=== PATIENT | female | born 1935 | race African-American/Black ===

== ENCOUNTER 2016-12-22 13:13 | Inpatient (IN) | payer OTHER, MEDICARE ==
[2016-12-22] VITALS (9 sets, daily range): BP systolic 157–202; BP diastolic 78–112; PULSE 79–116; RESP 15–20; TEMP 98.3–98.8; O2SAT 96–100
[~2016-12-22] VITALS: Ht 157.5 cm; Wt 65.0 kg
[~2016-12-22 13:13] MED LIST: FOLI5CAP PO; LISI2.5T3 PO; ROBA500T PO; VERA40TA PO
[2016-12-22] MEDS ORDERED: SODIUM CHLORIDE 0.9% FLUSH 10 ML FLUSH IVF PRN (14:00)
[2016-12-22 14:21] LABS: AUTOMATED NEUTROPHIL # 3.2 TH/MM3 (1.8-7.7); EOSINOPHIL # 0.1 TH/MM3 (0-0.4); EOSINOPHIL % 1.7 % (0.0-4.0); HEMATOCRIT 38.5 % (35.0-46.0); HEMO FLAGS DIFF FINAL; LYMPH % 23.6 % (9.0-44.0); LYMPHOCYTE # 1.2 TH/MM3 (1.0-4.8); MEAN CELL VOLUME 82.4 FL (80.0-100.0); MEAN CORPUSCULAR HEMOGLOBIN 27.3 PG (27.0-34.0); MEAN CORPUSCULAR HGB CONC 33.1 % (32.0-36.0); MONO % 10.2 % (0.0-8.0); NEUT % 63.5 % (16.0-70.0); PLATELET COUNT 192 TH/MM3 (150-450); RED BLOOD COUNT 4.68 MIL/MM3 (4.00-5.30); RED CELL DISTRIBUTION WIDTH 14.9 % (11.6-17.2)
[2016-12-22] MEDS ORDERED: hydrALAZINE HCL 20 MG/ML VIAL IV PUSH ONE (14:30)
[2016-12-22 14:32] LABS: PROTHROMBIN TIME - PATIENT 10.5 SEC (9.8-11.6)
[2016-12-22 14:40] LABS: ANION GAP 8 MEQ/L (5-15); BLOOD UREA NITROGEN 9 MG/DL (7-18); CHLORIDE 104 MEQ/L (98-107); GLOMERULAR FILTRATION RATE 84 ML/MIN (>89); MAGNESIUM 2.1 MG/DL (1.5-2.5); POTASSIUM 4.4 MEQ/L (3.5-5.1); SODIUM (NA) 139 MEQ/L (136-145)
[2016-12-22 14:45] LABS: CREATINE KINASE 166 U/L (26-192)
[2016-12-22 14:57] LABS: CKMB 1.8 NG/ML (0.5-3.6)
[2016-12-22 15:17] LABS: APTT (PATIENT) 21.3 SEC (24.3-30.1)
--- NOTE | 2016-12-22 15:20 | PD ---
HPI Chief Complaint: Cardiac Complaint Time Seen by Provider: 13:44 Travel History International Travel<30 days: No Contact w/Intl Traveler<30days: No Traveled to known affect area: No History of Present Illness HPI This is a 81-year-old female with history of hypertension, presents today with complaints of palpitations. The patient reports that she's been feeling palpitations over the last several days. She denies any chest pressure or chest pain. Patient does have a history of high blood pressure and states that she's been taking her medications as prescribed. There is no shortness of breath. There is no diaphoresis. There are no other complaints time my examination. The patient does live alone and states she is going through some stress and having some anxiety secondary to an upcoming family reunion. Patient also complaining of dizziness. No headache. No stiff neck. PFSH Past Medical History Anemia: Yes Arthritis: Yes (RA) Blood Disorders: No Cancer: No COPD: Yes Diminished Hearing: No Endocrine: No Genitourinary: Yes (SM URETHRA- NEEDS DILATING) Headaches: Yes Hypertension: Yes Immune Disorder: Yes (RA) Reproductive: No Past Surgical History Joint Replacement: Yes (LEFT TOTAL KNEE 03/04/06 [facility]) Social History Alcohol Use: No Tobacco Use: No Substance Use: No Allergies-Medications (Allergen,Severity, Reaction): Coded Allergies: Bactrim (Verified Allergy, Intermediate, Lip swelling, 05/08/16) Reported Meds & Prescriptions Reported Meds & Active Scripts Active Robaxin (Methocarbamol) 500 Mg Tab 500 Mg PO HS Reported [unknown] Verapamil (Verapamil HCl) 40 Mg Tab Unknown Dose PO DIRECTED Folic Acid 5 Mg Cap Unknown Dose PO DAILY Lisinopril 2.5 Mg Tab Unknown Dose PO DAILY Review of Systems Except as stated in HPI: all other systems reviewed are Neg General / Constitutional: No: Fever, Chills HENT: Positive: Lightheadedness, No: Headaches, Neck Stiffness, Neck Pain Cardiovascular: Positive: Palpitations, No: Chest Pain or Discomfort, Irregular Rhythm Respiratory: No: Cough, Shortness of Breath Gastrointestinal: No: Nausea, Vomiting, Abdominal Pain Genitourinary: No: Frequency, Dysuria Musculoskeletal: No: Weakness, Pain Neurologic: Positive: Dizziness, No: Weakness, Headache Physical Exam Narrative GENERAL: Well-developed well-nourished female in no acute rest her distress. SKIN: Focused skin assessment warm/dry. HEAD: Atraumatic. Normocephalic. EYES: No scleral icterus. No injection or drainage. ENT: No nasal bleeding or discharge. Mucous membranes pink and moist. NECK: Trachea midline. No JVD. Supple. CARDIOVASCULAR: Regular rate and rhythm. No murmur appreciated. RESPIRATORY: No accessory muscle use. Clear to auscultation. Breath sounds equal bilaterally. GASTROINTESTINAL: Abdomen soft, non-tender, nondistended. MUSCULOSKELETAL: No obvious deformities. No clubbing. No cyanosis. No edema. NEUROLOGICAL: Awake and alert. No obvious cranial nerve deficits. Motor grossly within normal limits. Normal speech. Data Data Last Documented VS Vital Signs Date Time Temp Pulse Resp B/P Pulse Ox O2 Delivery O2 Flow Rate FiO2 12/22/16 16:01 99 18 165/87 99 Room Air 12/22/16 13:16 98.3 Orders Electrocardiogram (12/22/16 13:51) Basic Metabolic Panel (Bmp) (12/22/16 13:51) B-Type Natriuretic Peptide (12/22/16 13:51) Ckmb (Isoenzyme) Profile (12/22/16 13:51) Complete Blood Count With Diff (12/22/16 13:51) Magnesium (Mg) (12/22/16 13:51) Prothrombin Time / Inr (Pt) (12/22/16 13:51) Act Partial Throm Time (Ptt) (12/22/16 13:51) Troponin I (12/22/16 13:51) Chest, Single Ap (12/22/16 13:51) Ecg Monitoring (12/22/16 13:51) Bilateral Bp Monitoring (12/22/16 13:51) Iv Access Insert/Monitor (12/22/16 13:51) Oximetry (12/22/16 13:51) Oxygen Administration (12/22/16 13:51) Sodium Chloride 0.9% Flush (Ns Flush) (12/22/16 14:00) Hydralazine Inj (Apresoline Inj) (12/22/16 14:30) CKMB (12/22/16 14:11) CKMB% (12/22/16 14:11) Enalaprilat Inj (Vasotec Inj) (12/22/16 16:15) Labs Laboratory Tests Test 12/22/16 14:11 White Blood Count 5.0 TH/MM3 Red Blood Count 4.68 MIL/MM3 Hemoglobin 12.8 GM/DL Hematocrit 38.5 % Mean Corpuscular Volume 82.4 FL Mean Corpuscular Hemoglobin 27.3 PG Mean Corpuscular Hemoglobin 33.1 % Concent Red Cell Distribution Width 14.9 % Platelet Count 192 TH/MM3 Mean Platelet Volume 8.9 FL Neutrophils (%) (Auto) 63.5 % Lymphocytes (%) (Auto) 23.6 % Monocytes (%) (Auto) 10.2 % Eosinophils (%) (Auto) 1.7 % Basophils (%) (Auto) 1.0 % Neutrophils # (Auto) 3.2 TH/MM3 Lymphocytes # (Auto) 1.2 TH/MM3 Monocytes # (Auto) 0.5 TH/MM3 Eosinophils # (Auto) 0.1 TH/MM3 Basophils # (Auto) 0.0 TH/MM3 CBC Comment DIFF FINAL Differential Comment Prothrombin Time 10.5 SEC Prothromb Time International 1.0 RATIO Ratio Activated Partial 21.3 SEC Thromboplast Time Sodium Level 139 MEQ/L Potassium Level 4.4 MEQ/L Chloride Level 104 MEQ/L Carbon Dioxide Level 27.0 MEQ/L Anion Gap 8 MEQ/L Blood Urea Nitrogen 9 MG/DL Creatinine 0.79 MG/DL Estimat Glomerular Filtration 84 ML/MIN Rate Random Glucose 79 MG/DL Calcium Level 8.8 MG/DL Magnesium Level 2.1 MG/DL Total Creatine Kinase 166 U/L Creatine Kinase MB 1.8 NG/ML Troponin I LESS THAN 0.02 NG/ML MDM Medical Decision Making Medical Screen Exam Complete: Yes Emergency Medical Condition: Yes Differential Diagnosis Hypertensive urgency versus ACS versus paroxysmal A. fib. Narrative Course 81-year-old female presents with complaints of palpitations and dizziness. The patient noted to have elevated blood pressure. Patient states she's been taking her blood pressure medicines as prescribed. EKG shows no evidence of acute ST elevation or depression. Cardiac enzymes are within normal limits. The patient is received 2 doses of IVD antihypertensives. Given this, I feel the patient will benefit from an observation admission to get her blood pressure under control. There is a call out to the [facility] for observation. Diagnosis Primary Impression: Hypertensive urgency Additional Impression: Palpitations Gallo Church MD Dec 22, 2016 15:20
--- NOTE | 2016-12-22 15:35 | RADRPT ---
EXAM DATE/TIME: 12/22/2016 14:32 [facility] COMPARISON: CHEST SINGLE AP, April 09, 2015, 14:21. INDICATIONS : Rapid heart rate. MEDICAL HISTORY : Chronic obstructive pulmonary disease. SURGICAL HISTORY : None. ENCOUNTER: Initial ACUITY: 1 day PAIN SCORE: 0/10 LOCATION: Bilateral chest FINDINGS: Linear platelike opacity in the left lung base similar to prior exam consistent with atelectasis/scar ring. Minimal airspace disease in the right lung base improved from prior exam, likely atelectasis. N o significant pneumothorax or pleural effusion. Cardiomediastinal contours are stable. Redemonstratio n of advanced degenerative changes in the right shoulder. Remainder of exam is unchanged. CONCLUSION: 1. Bilateral lower lobe atelectasis/scarring. 2. No acute abnormality or significant interval change. Thom Rolon MD on December 22, 2016 at 15:31 Board Certified Radiologist. This report was verified electronically.
[2016-12-22] MEDS ORDERED: ENALAPRILAT 1.25 MG/ML VIAL IV PUSH ONE (16:15)
[2016-12-22] MEDS ORDERED: NALOXONE HCL 0.4 MG/ML AMP IV PRN (17:00)
[2016-12-22] MEDS ORDERED: ENALAPRILAT 1.25 MG/ML VIAL IV PUSH PRN (17:00)
[2016-12-22] MEDS ORDERED: LACTULOSE SYRUP 20 GM/30 ML CUP PO PRN (17:00)
[2016-12-22] MEDS ORDERED: MAGNESIUM HYDROXIDE SUSP 30 ML CUP PO PRN (17:00)
[2016-12-22] MEDS ORDERED: BISACODYL 10 MG SUPP RECTAL PRN (17:00)
[2016-12-22] MEDS ORDERED: SODIUM CHLORIDE 0.9% FLUSH 10 ML FLUSH IV FLUSH PRN (17:00)
[2016-12-22] MEDS ORDERED: ONDANSETRON HCL 4 MG/2 ML VIAL IVP PRN (17:00)
[2016-12-22] MEDS ORDERED: SENNOSIDES 8.6 MG TAB PO PRN (17:00)
[2016-12-22] MEDS ORDERED: LISI-519 PO (17:17)
[2016-12-22] MEDS ORDERED: METH2.5T PO (17:17)
[2016-12-22] MEDS ORDERED: MELO7.5T4 PO (17:17)
[2016-12-22] MEDS ORDERED: METO25TA3 PO (17:17)
[2016-12-22] MEDS ORDERED: ESCI20TA PO (17:17)
--- NOTE | 2016-12-22 17:49 | HHI.HP ---
HPI Service [facility] Primary Care Physician Non-Staff Admission Diagnosis uncontrolled hypertension, palpatations. Diagnoses: (1) Hypertensive urgency Diagnosis: Principal Travel History International Travel<30 Days: No Contact w/Intl Traveler <30 Da: No Traveled to Known Affected Are: No History of Present Illness Patient is a pleasant 81-year-old female with past medical history of RA, hypertension, questionable COPD presented to the emergency room because of feeling dizzy. She states that she went out to eat yesterday and felt dizzy and this continued throughout the night. She did not fall or loss of balance or felt lightheaded. She tells me that she has no difficulty walking however the dizziness bother her to the point that she decided to come to the emergency room to be evaluated. She did have an appointment last with her primary care doctor because at the time she had fallen and hit her side of her chest. She was concerned because she had pain whenever she sneezed. Her PCP evaluated her and was not concerned about her heart. He denies any chest pain, shortness of breath, nausea or vomiting. Currently she denies any lightheadedness and is not complaining of any dizziness. She tells me that she takes verapamil, lisinopril and metoprolol however she ran out of her metoprolol the other day and has not had a chance to refill her medicine. She goes to [facility]. She tells me she has no family here in town however her nieces to call her and check on her. She has some mild burning in her eyes however denies any blurry vision, headache although she states that she had a mild headache earlier today which has resolved. She doesn't use a cane or walker Review of Systems Except as stated in HPI: all other systems reviewed are Neg Past Family Social History Past Medical History Hypertension, rheumatoid arthritis, questionable COPD Past Surgical History Left total knee arthroplasty Reported Medications Last Impressions Chest X-Ray 12/22/16 1351 Signed Impressions: Service Date/Time: Thursday, December 22, 2016 14:32 - CONCLUSION: 1. Bilateral lower lobe atelectasis/scarring. 2. No acute abnormality or significant interval change. Thom Rolon MD Allergies: Coded Allergies: Bactrim (Verified Allergy, Intermediate, Lip swelling, 05/08/16) Family History Mother had Alzheimer's and father had high blood pressure Social History Denies any smoking history, drinks wine socially, denies illegal drug use Physical Exam Vital Signs Vital Signs Date Time Temp Pulse Resp B/P Pulse Ox O2 Delivery O2 Flow Rate FiO2 12/22/16 16:01 99 18 165/87 99 Room Air 12/22/16 14:34 85 18 179/88 98 Room Air 12/22/16 14:14 75 18 97 Room Air 12/22/16 14:12 18 96 Room Air 12/22/16 14:12 96 Room Air 12/22/16 14:12 79 185/108 202/112 12/22/16 13:16 98.3 84 15 172/101 98 Physical Exam GENERAL: This is a well-nourished, well-developed patient, in no apparent distress. SKIN: No rashes, ecchymoses or lesions. Cool and dry. HEAD: Atraumatic. Normocephalic. No temporal or scalp tenderness. EYES: Pupils equal round and reactive. Extraocular motions intact. Mild injection bilaterally. No drainage ENT: Nose without drainage. Throat without erythema, tonsillar hypertrophy or exudate. Uvula midline. Airway patent. NECK: Trachea midline. No JVD or lymphadenopathy. Supple, nontender, no meningeal signs. CARDIOVASCULAR: Regular rate and rhythm without murmurs. RESPIRATORY: Clear to auscultation. Breath sounds equal bilaterally. No wheezes. GASTROINTESTINAL: Abdomen soft, non-tender, nondistended. No palpable masses. No guarding. MUSCULOSKELETAL: Extremities without edema. No calf tenderness. Negative Homans sign bilaterally. NEUROLOGICAL: Awake and alert. Cranial nerves II through XII intact. Motor and sensory grossly within normal limits. Normal speech. Laboratory Laboratory Tests Test 12/22/16 14:11 White Blood Count 5.0 Red Blood Count 4.68 Hemoglobin 12.8 Hematocrit 38.5 Mean Corpuscular Volume 82.4 Mean Corpuscular Hemoglobin 27.3 Mean Corpuscular Hemoglobin 33.1 Concent Red Cell Distribution Width 14.9 Platelet Count 192 Mean Platelet Volume 8.9 Neutrophils (%) (Auto) 63.5 Lymphocytes (%) (Auto) 23.6 Monocytes (%) (Auto) 10.2 Eosinophils (%) (Auto) 1.7 Basophils (%) (Auto) 1.0 Neutrophils # (Auto) 3.2 Lymphocytes # (Auto) 1.2 Monocytes # (Auto) 0.5 Eosinophils # (Auto) 0.1 Basophils # (Auto) 0.0 CBC Comment DIFF FINAL Differential Comment Prothrombin Time 10.5 Prothromb Time International 1.0 Ratio Activated Partial 21.3 Thromboplast Time Sodium Level 139 Potassium Level 4.4 Chloride Level 104 Carbon Dioxide Level 27.0 Anion Gap 8 Blood Urea Nitrogen 9 Creatinine 0.79 Estimat Glomerular Filtration 84 Rate Random Glucose 79 Calcium Level 8.8 Magnesium Level 2.1 Total Creatine Kinase 166 Creatine Kinase MB 1.8 Troponin I LESS THAN 0.02 Result Diagram: 12/22/16 1411 12/22/16 1411 Imaging Last Impressions Chest X-Ray 12/22/16 1351 Signed Impressions: Service Date/Time: Thursday, December 22, 2016 14:32 - CONCLUSION: 1. Bilateral lower lobe atelectasis/scarring. 2. No acute abnormality or significant interval change. Thom Rolon MD Assessment and Plan Assessment and Plan Hypertensive urgency: Patient received a dose of hydralazine and Vasotec in the emergency room with minimal improvement. Initial blood pressure was 180-200 systolic. Patient admits to running out of her metoprolol and not having a chance to refill it. I had a long conversation w patient about her sodium intake and explained to her that she should follow a low sodium diet. I will increase her verapamil 40 mg BID, lisinopril will increase it to 10 mg daily, continue metoprolol 25 mg daily. Hydralazine when necessary and Vasotec when necessary. Titrate meds as needed. Patient has no neurological deficits come, creatinine is 0.79 and initial troponin is within normal limits. Rheumatoid arthritis: Resume her methotrexate ?COPD: Stable DVT prophylaxis: Lovenox Code Status full Discussed Condition With ER physician and patient Sandrita Mckenzie MD Dec 22, 2016 17:49
[2016-12-22] MEDS ORDERED: ENOXAPARIN SODIUM 40 MG/0.4 ML SYRINGE SQ SCH (18:00)
[2016-12-22] MEDS: hydrALAZINE HCL 10 MG TAB PO PRN (18:34)
[2016-12-22] MEDS ORDERED: LISINOPRIL 10 MG TAB PO SCH (21:00)
[2016-12-22] MEDS: DOCUSATE SODIUM 50 MG/SENNA 8.6 MG TAB PO SCH (21:00)
[2016-12-22] MEDS ORDERED: VERAPAMIL HCL 40 MG TAB PO SCH (21:00)
[2016-12-22] MEDS: SODIUM CHLORIDE 0.9% FLUSH 10 ML FLUSH IV FLUSH SCH (21:42)
[2016-12-23] VITALS (18 sets, daily range): BP systolic 91–210; BP diastolic 57–112; PULSE 67–93; RESP 16–20; TEMP 98.5–98.7; O2SAT 95–99
[2016-12-23] MEDS: hydrALAZINE HCL 10 MG TAB PO PRN (01:14)
[2016-12-23] MEDS ORDERED: cloNIDine HCL 0.1 MG TAB PO ONE ×2 (02:30→03:45)
[2016-12-23] MEDS ORDERED: hydrALAZINE HCL 50 MG TAB PO ONE (04:45)
[2016-12-23 07:37] LABS: BICARBONATE 26.9 MEQ/L (21.0-32.0); POTASSIUM 3.6 MEQ/L (3.5-5.1)
--- NOTE | 2016-12-23 08:42 | HHI.PR ---
Subjective Remarks The patient tells me she feels well this morning. Denies any dizziness or lightheadedness. Denies any chest pains or shortness of breath. She states that she follows with Dr. Rivera and can easily make an appointment after she is in leaves the hospital. Objective Vitals Vital Signs Date Time Temp Pulse Resp B/P Pulse Ox O2 Delivery O2 Flow Rate FiO2 12/23/16 07:00 81 12/23/16 06:45 81 96/60 12/23/16 06:30 92 12/23/16 06:30 82 95/62 12/23/16 06:15 98.5 91 16 122/73 99 Manual Cuff/Auscultation 12/23/16 05:52 115/72 12/23/16 04:36 180/110 12/23/16 04:29 98.5 91 19 191/96 97 12/23/16 03:27 90 18 195/103 95 190/112 12/23/16 02:09 93 188/109 175/110 12/23/16 00:54 190/109 12/23/16 00:40 210/100 12/22/16 23:52 172/110 12/22/16 23:45 98.7 96 20 171/90 96 12/22/16 21:17 98.8 116 20 157/78 100 12/22/16 18:42 98.5 104 20 180/98 97 12/22/16 17:50 89 18 200/103 98 Room Air 12/22/16 16:01 99 18 165/87 99 Room Air 12/22/16 14:34 85 18 179/88 98 Room Air 12/22/16 14:14 75 18 97 Room Air 12/22/16 14:12 18 96 Room Air 12/22/16 14:12 96 Room Air 12/22/16 14:12 79 185/108 202/112 12/22/16 13:16 98.3 84 15 172/101 98 I/O 12/22/16 12/22/16 12/22/16 12/23/16 12/23/16 12/23/16 07:00 15:00 23:00 07:00 15:00 23:00 Intake Total 480 ml Balance 480 ml Intake Oral 480 ml # Voids 1 Result Diagram: 12/22/16 1411 12/23/16 0542 Imaging Last Impressions Chest X-Ray 12/22/16 9689 Signed Impressions: Service Date/Time: Thursday, December 22, 2016 14:32 - CONCLUSION: 1. Bilateral lower lobe atelectasis/scarring. 2. No acute abnormality or significant interval change. Thom Rolon MD Objective Remarks GENERAL: This is a well-nourished, well-developed patient, in no apparent distress. EYES: Extraocular motions intact. ENT: Nose without drainage. Airway patent. NECK: Trachea midline. Supple CARDIOVASCULAR: Regular rate and rhythm without murmurs. RESPIRATORY: Clear to auscultation. Breath sounds equal bilaterally. No wheezes. GASTROINTESTINAL: Abdomen soft, non-tender, nondistended. No palpable masses. No guarding. MUSCULOSKELETAL: Extremities without edema. No calf tenderness. Negative Homans sign bilaterally. NEUROLOGICAL: Awake and alert. Cranial nerves II through XII intact. Motor and sensory grossly within normal limits. Normal speech. A/P Problem List: (1) Hypertensive urgency ICD Code: I16.0 Status: Acute Assessment and Plan Hypertensive urgency: Patient received a dose of hydralazine and Vasotec in the emergency room with minimal improvement. Initial blood pressure was 180-200 systolic. Patient admits to running out of her metoprolol and not having a chance to refill it. On admission, I had a long conversation w patient about her sodium intake and explained to her that she should follow a low sodium diet. Pt received a dose of hydralazine 50mg po around 3 AM. I will switch her verapamil 40 mg HS, continue lisinopril 10 mg daily, continue metoprolol 25 mg daily w holding parameters. Hydralazine when necessary and Vasotec when necessary. Titrate meds as needed. Patient has no neurological deficits come, creatinine is 0.79 and initial troponin is within normal limits. Pt has a good f /u. Rheumatoid arthritis: on her home dose of methotrexate ?COPD: Stable DVT prophylaxis: Lovenox Discharge Planning ok to discharge later today as long as her SBP <150 Sandrita Mckenzie MD Dec 23, 2016 08:42
[2016-12-23] MEDS: SODIUM CHLORIDE 0.9% FLUSH 10 ML FLUSH IV FLUSH SCH (09:00)
[2016-12-23] MEDS ORDERED: METOPROLOL TARTRATE 25 MG TAB PO SCH (09:00)
[2016-12-23] MEDS ORDERED: METHOTREXATE 2.5 MG TAB PO SCH (09:00)
[2016-12-23] MEDS ORDERED: LISINOPRIL 10 MG TAB PO SCH ×2 (09:00→11:45)
[2016-12-23] MEDS ORDERED: ESCITALOPRAM OXALATE 20 MG TAB PO SCH (09:00)
[2016-12-23] MEDS: DOCUSATE SODIUM 50 MG/SENNA 8.6 MG TAB PO SCH (09:33)
[2016-12-23] MEDS ORDERED: PNEUMOCOCCAL POLYVALENT INJ 25 MCG/0.5 ML SYR IM ONE (10:00)
[2016-12-23] MEDS ORDERED: VERA40TA PO (12:29)
[2016-12-23] MEDS ORDERED: LISI10TA3 PO (12:29)
[2016-12-23] MEDS ORDERED: METO25TA3 PO (12:29)
--- NOTE | 2016-12-23 19:13 | EKG ---
Date Performed: 12/22/2016 Time Performed: 14:01:24 PTAGE: 81 years EKG: Sinus rhythm POSSIBLE LEFT ATRIAL ENLARGEMENT BORDERLINE LEFT AXIS DEVIATION POSSIBLE LEFT VENTRICULAR HYPERTROPH Y ABNORMAL ECG PREVIOUS TRACING : 04/09/2015 13.59 Compared to prior tracing no significant change DOCTOR: Zackary Gunter Interpretating Date/Time 12/23/2016 19:11:58
[2016-12-23] MEDS ORDERED: VERAPAMIL HCL 40 MG TAB PO SCH (21:00)
[2016-12-24] MEDS ORDERED: INFLUENZA VIRUS VACCINE (QUADRIVALENT) 0.5 ML SYR IM ONE (10:00)
== END 2016-12-23 14:34 | disposition home or self-care (01) | DRG 305 ==
LOC: NEPC 13:13 → NEDA 16:51 → NEPGCP 18:22 → OBSVTOIN 12-23 03:37 → HCIS 12-23 06:12
PROVIDERS: ADMIT Hospitalist; ATTEND Hospitalist
DX: I16.0 Hypertensive urgency (principal); J44.9 Chronic obstructive pulmonary disease, unspecified; M06.9 Rheumatoid arthritis, unspecified; I10 Essential (primary) hypertension; Z96.652 Presence of left artificial knee joint
CPT/HCPCS: 71010; 80048; 82550; 82552; 83735; 83880; 84484; 85025; 85610; 85730; 93005; 96374; 96375; G0378; J0360; J1650

== ENCOUNTER 2017-01-03 09:53 | Emergency (ER) | payer MEDICARE, OTHER ==
[~2017-01-03] VITALS: Ht 157.5 cm; Wt 65.0 kg
[~2017-01-03 09:53] MED LIST changes: +ESCI20TA PO; +LISI10TA3 PO; -LISI2.5T3 PO; +MELO7.5T4 PO; +METH2.5T PO; +METO25TA3 PO; -ROBA500T PO
[2017-01-03 09:58] VITALS: BP 182/97; PULSE 66; RESP 18; TEMP 98.4; O2SAT 94
--- NOTE | 2017-01-03 10:07 | PD ---
HPI Chief Complaint: Fall Time Seen by Provider: 10:02 Travel History International Travel<30 days: No Contact w/Intl Traveler<30days: No Traveled to known affect area: No History of Present Illness HPI 81 yo F arrives by EMS. She fell backwards striking her occipital scalp on concrete. She had been attempting to lift up her small dog as another larger dog was approaching her. She was ambulatory afterwards. She denied loss of consciousness. She does not take any blood thinner. She has constant pain associated with swelling in the left occipital scalp. An ice pack has been helpful. The onset was sudden in the injury occurred about 30 minutes prior to ER arrival. PFSH Past Medical History Anemia: Yes Arthritis: Yes (RA) Blood Disorders: No Anxiety: Yes Heart Rhythm Problems: Yes (TACHYCARDIA) Cancer: No Cardiovascular Problems: Yes (HTN) COPD: Yes Diminished Hearing: No Endocrine: No Genitourinary: No Headaches: Yes Hypertension: Yes Immune Disorder: Yes (RA) Musculoskeletal: No Neurologic: No Reproductive: No Respiratory: No Past Surgical History Abdominal Surgery: No Body Medical Devices: LEFT KNEE Cardiac Surgery: No Ear Surgery: No Endocrine Surgery: No Eye Surgery: No Genitourinary Surgery: No Gynecologic Surgery: No Joint Replacement: Yes (LEFT TOTAL KNEE 03/04/06 [facility]) Oral Surgery: No Thoracic Surgery: No Social History Alcohol Use: No Tobacco Use: No Substance Use: No Allergies-Medications (Allergen,Severity, Reaction): Coded Allergies: Bactrim (Verified Allergy, Intermediate, Lip swelling, 01/03/17) Reported Meds & Prescriptions Reported Meds & Active Scripts Active Verapamil (Verapamil HCl) 40 Mg Tab 40 Mg PO HS 30 Days Metoprolol Tartrate 25 Mg Tab 25 Mg PO DAILY 30 Days Lisinopril 10 Mg Tab 10 Mg PO DAILY 30 Days Reported Methotrexate 2.5 Mg Tab 5 Mg PO DAILY Escitalopram (Escitalopram Oxalate) 20 Mg Tab 20 Mg PO DAILY Meloxicam 7.5 Mg Tab 7.5 Mg PO DAILY [unknown] Folic Acid 5 Mg Cap Unknown Dose PO DAILY Review of Systems Except as stated in HPI: all other systems reviewed are Neg Physical Exam Narrative GENERAL: 81 yo female well-nourished well-developed SKIN: Focused skin assessment warm/dry. HEAD: Atraumatic. Normocephalic. 4 cm cephalohematoma left parietooccipital scalp. EYES: Pupils equal and round. No scleral icterus. No injection or drainage. ENT: No nasal bleeding or discharge. Mucous membranes pink and moist. NECK: Trachea midline. No JVD. CARDIOVASCULAR: Regular rate and rhythm. No murmur appreciated. RESPIRATORY: No accessory muscle use. Clear to auscultation. Breath sounds equal bilaterally. GASTROINTESTINAL: Abdomen soft, non-tender, nondistended. Hepatic and splenic margins not palpable. MUSCULOSKELETAL: No obvious deformities. No clubbing. No cyanosis. No edema. No tenderness about the greater trochanters. NEUROLOGICAL: Awake and alert. No obvious cranial nerve deficits. Motor grossly within normal limits. Normal speech. PSYCHIATRIC: Appropriate mood and affect; insight and judgment normal. Data Data Last Documented VS Vital Signs Date Time Temp Pulse Resp B/P Pulse Ox O2 Delivery O2 Flow Rate FiO2 01/03/17 10:03 67 18 95 Room Air 01/03/17 09:58 98.4 182/97 Vital signs reviewed Orders Ct Brain W/O Iv Contrast(Rout) (01/03/17 10:02) Acetaminophen (Tylenol) (01/03/17 10:15) MDM Medical Decision Making Medical Screen Exam Complete: Yes Emergency Medical Condition: Yes Medical Record Reviewed: Yes Differential Diagnosis Contusion, intracranial hemorrhage, skull fracture Narrative Course The patient is ambulatory. There is no tenderness about the pelvis/greater trochanters. Head CT shows no acute intracranial injury/disease. 1100: pt resting comfortably, return precautions discussed, pt ready for discharge, bp medications refilled and contact information for primary care providers in the area was provided Diagnosis Primary Impression: Fall Qualified Code: W19.XXXA - Fall, initial encounter Additional Impression: Scalp contusion Referrals: Brennen Bledsoe MD call for appointment Tirso Maya MD call for appointment Wendy Lazo MD call for appointment Marcello Soriano MD call for appointment [facility] call for appointment Additional Instructions: You have a choice when it comes to health care, and we are glad that you chose [facility]. Hopefully, we have met your expectations on today's visit. You are welcome to return to [facility] at any time, as we are committed to meeting the health care needs of our community. IF YOU DEVELOP ANY OF THE FOLLOWING SYMPTOMS PLEASE RETURN TO THE ER: LIGHTHEADEDNESS, DIFFICULTY CONCENTRATION, SEVERE FATIGUE, WORSENING HEADACHE, AND VOMITING. IF BASED ON YOUR JUDGEMENT A RETURN VISIT IS INDICATED, PLEASE DO NOT HESITATE TO RETURN TO THE ER. ALL OF THE DOCTORS LISTED UNDER REFERRALS ARE PRIMARY CARE DOCTORS. PLEASE CALL UNTIL YOU'RE ABLE TO MAKE AN APPOINTMENT WITH ONE OF THEM. Med/Other Pt SpecificInfo: Prescription(s) given Scripts Verapamil 40 Mg Tab40 Mg PO HS #30 TAB Prov:Raymond Gunter MD 01/03/17 Metoprolol Tartrate 25 Mg Tab25 Mg PO DAILY #30 TAB Prov:Raymond Gunter MD 01/03/17 Lisinopril 10 Mg Tab10 Mg PO DAILY #30 TAB Prov:Raymond Gunter MD 01/03/17 Disposition: 01 DISCHARGE HOME Condition: Stable Raymond Gunter MD Jan 03, 2017 10:07
[2017-01-03] MEDS ORDERED: ACETAMINOPHEN 325 MG TAB PO ONE (10:15)
--- NOTE | 2017-01-03 11:00 | RADRPT ---
EXAM DATE/TIME: 01/03/2017 10:31 [facility] COMPARISON: No previous studies available for comparison. INDICATIONS : Trauma, fall onto posterior head today. RADIATION DOSE: 30.41 CTDIvol (mGy) MEDICAL HISTORY : Hypertension. Rheumatoid arthritis. Chronic obstructive pulmonary disease. SURGICAL HISTORY : None. ENCOUNTER: Initial ACUITY: 1 day PAIN SCALE: 4/10 LOCATION: occipital head TECHNIQUE: Multiple contiguous axial images were obtained of the head. Using automated exposure control and adj ustment of the mA and/or kV according to patient size, radiation dose was kept as low as reasonably a chievable to obtain optimal diagnostic quality images. DICOM format image data is available electro nically for review and comparison. FINDINGS: There is marked central and cortical atrophy with dilatation of ventricular and sulcal spaces. There is no parenchymal hemorrhage, acute infarction or mass lesion identified. There are no extra-axial fluid collections appreciated. The posterior fossa is unremarkable with midline fourth ventricle. T he portion of the orbits and paranasal sinuses visualized are unremarkable. CONCLUSION: Atrophy otherwise negative.. Neri Busch MD FACR on January 03, 2017 at 10:58 Board Certified Radiologist. This report was verified electronically.
[2017-01-03] MEDS ORDERED: VERA40TA PO (11:12)
[2017-01-03] MEDS ORDERED: LISI10TA3 PO (11:12)
[2017-01-03] MEDS ORDERED: METO25TA3 PO (11:12)
== END 2017-01-03 12:17 | disposition home or self-care (01) ==
LOC: NEPE 09:53
DX: S00.03XA Contusion of scalp, initial encounter (principal); D64.9 Anemia, unspecified; M06.9 Rheumatoid arthritis, unspecified; F41.9 Anxiety disorder, unspecified; R00.0 Tachycardia, unspecified; I10 Essential (primary) hypertension; J44.9 Chronic obstructive pulmonary disease, unspecified; W18.30XA Fall on same level, unspecified, initial encounter; Z79.899 Other long term (current) drug therapy
CPT/HCPCS: 70450